=== PATIENT | female | born 2005 | race Caucasian/White ===

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

== ENCOUNTER → 2023-10-25 | Outpatient (CLI) | payer OTHER ==
--- NOTE | 2023-10-25 21:39 | US ---
EXAMINATION TYPE: US OB >= 14 wk fetus DATE OF EXAM: 10/25/2023 COMPARISON: None CLINICAL INDICATION: Female, 18 years old with history of O36.0990 MATERNAL CARE FOR OTH RHESUS ISOIM COLLINS; Rhesus factor TECHNIQUE: Transabdominal (TA) GESTATIONAL AGE / DATING Physician Established: (29 weeks/5 days) EDC: 01/05/2024 Dates by LMP: (29 weeks/5 days) EDC: 01/05/2024 Dates by First Scan: outside imaging Dates by Current Scan: (30 weeks/3 days) EDC: 12/31/2023 Beta HCG (if available): Not available at this time SURVEY IUP: Single PLACENTA: Posterior PREVIA: No Previa NADEEM: 9.1 cm Normal CERVICAL LENGTH (transabdominal: norm > 3.0cm): shadowed by head BIOMETRY PRESENTATION: Vertex LIE: Longitudinal BPD: 7.5 cm 30 weeks / 1 days HC: 28.3 cm 31 weeks / 1 days AC: 27.1 cm 31 weeks / 2 days FL: 5.5 cm 29 weeks / 1 days ESTIMATED WEIGHT IN GRAMS: 1576 grams ESTIMATED WEIGHT IN LBS/OZ: 3 lbs. 8 oz. WEIGHT PERCENTAGE BASED ON ESTABLISHED DATES: 64% HC/AC: 1.1 Normal FL/AC: 20% Normal HEART RATE: 130 bpm RHYTHM: Normal IMPRESSION: 1. Single live intrauterine gestation AGE 30 WEEKS 3 DAYS. 2. ADDITIONAL INFORMATION DESCRIBED ABOVE.
== END | disposition home or self-care (01) ==
LOC: RADUSWWP 15:59
PROVIDERS: ATTEND Obstetrics & Gynecology
DX: O36.0931 Maternal care for other rhesus isoimmunization, third trimester, fetus 1 (principal); Z3A.31 31 weeks gestation of pregnancy
CPT/HCPCS: 76805

== ENCOUNTER 2023-12-29 06:10 | Inpatient (IN) | payer OTHER ==
[2023-12-29] MEDS ORDERED: TRANEXAMIC 1,000 MG/100ML-NACL 1,000 MG in EMPTY BAG 1 BAG IV PRN (06:22)
[2023-12-29] MEDS ORDERED: CARBOPROST TROMETHAMINE 250 MCG/ML 1 ML AMP IM PRN (06:22)
[2023-12-29] MEDS ORDERED: OXYTOCIN 10 UNIT/ML 1 ML VIAL IM PRN (06:22)
[2023-12-29] MEDS ORDERED: METHYLERGONOVINE 0.2 MG/ML 1 ML AMP IM PRN (06:22)
[2023-12-29] MEDS ORDERED: miSOPROStoL 200 MCG TAB PO PRN (06:22)
[2023-12-29] MEDS ORDERED: OXYTOCIN 30 UNITS/500 ML NS 30 UNIT in SALINE 1 500ML.BAG IV SCH ×2 (06:30→09:00)
[2023-12-29 06:51] LABS: Basophils % (A) 0 %; Eosinophils # (A) 0.1 k/uL (0-0.7); Eosinophils % (A) 1 %; HCT 33.4 % (34.0-46.0); HGB 10.8 gm/dL (11.4-16.0); Lymphocytes # (A) 1.6 k/uL (1.0-4.8); Lymphocytes % (A) 22 %; MCH 27.9 pg (25.0-35.0); MCHC 32.5 g/dL (31.0-37.0); MCV 85.8 fL (80.0-100.0); Monocytes # (A) 0.4 k/uL (0-1.0); Monocytes % (A) 5 %; Neutrophils # (A) 4.7 k/uL (1.3-7.7); Neutrophils % (A) 67 %; Platelet Count 157 k/uL (150-450); RBC 3.89 m/uL (3.80-5.40); RDW 15.5 % (11.5-15.5)
[2023-12-29] MEDS: CITRIC ACID-SODIUM CITRATE 15 ML CUP PO ONE (07:16)
--- NOTE | 2023-12-29 08:00 | P.HPOB ---
History of Present Illness H&P Date: 12/29/23 Chief Complaint: repeat low transverse 18 year old presents at 39 weeks 1 day for repeat low transverse . Review of Systems All systems: negative Constitutional: Denies chills, Denies fever Eyes: denies blurred vision, denies pain Ears, nose, mouth and throat: Denies headache, Denies sore throat Cardiovascular: Denies chest pain, Denies shortness of breath Respiratory: Denies cough Gastrointestinal: Denies abdominal pain, Denies diarrhea, Denies nausea, Denies vomiting Genitourinary: Denies dysuria, Denies hematuria Musculoskeletal: Denies myalgias Integumentary: Denies pruritus, Denies rash Neurological: Denies numbness, Denies weakness Psychiatric: Denies anxiety, Denies depression Endocrine: Denies fatigue, Denies weight change Past Medical History Past Medical History: No Reported History History of Any Multi-Drug Resistant Organisms: None Reported Past Surgical History: Section Past Anesthesia/Blood Transfusion Reactions: No Reported Reaction Past Psychological History: No Psychological Hx Reported Smoking Status: Former smoker Past Alcohol Use History: None Reported Past Drug Use History: Marijuana - Past Family History Father Family Medical History: No Reported History Medications and Allergies Allergies Allergy/AdvReac Type Severity Reaction Status Date / Time No Known Allergies Allergy Verified 12/29/23 06:22 Exam Osteopathic Statement: *. No significant issues noted on an osteopathic structural exam other than those noted in the History and Physical/Consult. Intake and Output 12/28/23 12/29/23 12/29/23 22:59 06:59 14:59 Other: Weight 61.235 kg Heart: Regular rate and rhythm Lungs: Clear to auscultation bilaterally Abdomen: Soft, nontender Extremities: Negative Homans sign Results Result Diagrams: 12/29/23 06:40 Abnormal Lab Results - Last 24 Hours (Table) 12/29/23 Range/Units 06:40 Hgb 10.8 L (11.4-16.0) gm/dL Hct 33.4 L (34.0-46.0) % Assessment and Plan (1) Previous section Current Visit: Yes Status: Acute Code(s): Z98.891 - HISTORY OF UTERINE SCAR FROM PREVIOUS SURGERY SNOMED Code(s): 417249660 (2) 39 weeks gestation of Current Visit: Yes Status: Acute Code(s): Z3A.39 - 39 WEEKS GESTATION OF SNOMED Code(s): 14619942 Plan: 1. repeat low transverse
[2023-12-29] MEDS ORDERED: ONDANSETRON 4 MG/2 ML VIAL ONE (08:12)
[2023-12-29] MEDS ORDERED: KETOROLAC 15 MG/ML 1 ML VIAL ONE (08:12)
[2023-12-29] MEDS ORDERED: OXYTOCIN 30 UNITS/500 ML NS BAG IV ONE (08:12)
[2023-12-29] MEDS ORDERED: MORPHINE SULFATE (PF) 0.3 MG/0.3 ML SYR ONE (08:12)
[2023-12-29] MEDS ORDERED: PHENYLEPHRINE-0.9% NACL SYG 1,000 MCG/10 ML SYRINGE ONE (08:12)
[2023-12-29] MEDS ORDERED: diphenhydrAMINE 50 MG/ML 1 ML VIAL IVP PRN (08:50)
[2023-12-29] MEDS ORDERED: diphenhydrAMINE 25 MG CAP PO PRN (08:50)
[2023-12-29] MEDS ORDERED: NALOXONE 0.4 MG/ML 1 ML VIAL IV PRN (08:50)
[2023-12-29] MEDS ORDERED: diphenhydrAMINE 50 MG CAP PO PRN (08:50)
[2023-12-29] MEDS ORDERED: METOCLOPRAMIDE 5 MG/ML 2 ML VIAL IVP PRN (08:50)
[2023-12-29] MEDS ORDERED: LANOLIN CREAM 1 GM TUBE TOPICAL PRN (08:50)
[2023-12-29] MEDS ORDERED: SIMETHICONE 80 MG CHEWABLE PO PRN (08:50)
[2023-12-29] MEDS ORDERED: ZOLPIDEM 5 MG TAB PO PRN (08:50)
--- NOTE | 2023-12-29 08:53 | P.OP ---
Date of Procedure: 12/29/23 Preoperative Diagnosis: 1. at 39 weeks 1 day 2. previous Postoperative Diagnosis: same Procedure(s) Performed: Repeat low transverse Anesthesia: spinal Surgeon: Kalie Mchugh Collaborative Physician #1: Nicolle Angel Estimated Blood Loss (ml): 340 IV fluids (ml): 600 Urine output (ml): 150 Pathology: none sent Condition: stable Disposition: floor Operative Findings: Viable female, Apgars 9, 9, weight 6 lbs. 9 oz. Description of Procedure: Patient was taken to the operating room where spinal anesthesia was found be adequate. She was prepped and draped in normal sterile fashion in dorsal supine position with a leftward tilt. Pfannenstiel skin incision was made the scalpel and carried through to the underlying layer of fascia with the scalpel. Fascia was incised in midline and carried bilaterally with the Novoa scissors. The superior aspect of the fascial incision was grasped with Powderly clamps elevated and the underlying rectus muscles dissected off with the Novoa's. Attention was then turned to inferior aspect of same incision which in a similar fashion was grasped tented up and the underlying rectus muscles dissected off with the Novoa's. The rectus muscles were the midline and the peritoneum was identified tented up and entered sharply with the scalpel. The incision was extended superiorly and inferiorly with good visualization of the bladder. The bladder blade was inserted and the vesicouterine peritoneum was incised the Metzenbaums then carried bilaterally and bladder flap created digitally. A low transverse incision was then made on the uterus with the scalpel. This was carried bilaterally and digital manner. Infant's head delivered atraumatically, nose and mouth bulb suctioned, cord clamped and cut, infant handed off to waiting nurses. Apgars 9,9, weight 6 lbs. 9 oz. Placenta delivered manually, intact with three-vessel cord. The uterus is exteriorized and cleared of all clots and debris. The uterine incision was closed with 0 Vicryl in a running locked fashion. Second layer of the same sutures used in imbricating fashion to obtain excellent hemostasis. Both ovaries and tubes appeared normal. The uterus was placed back into the abdomen. The peritoneum was reapproximated using 2-0 Vicryl in a running fashion. The muscles were reapproximated using 2- 0 Vicryl in interrupted fashion. The fascia was reapproximated using 0 Vicryl in a running fashion. The subcutaneous tissues closed with 3-0 Vicryl running fashion. The skin was closed brandon. Patient tolerated the procedure well, sponge and instrument counts were correct times 2 and she was taken to the recovery room in stable condition.
[2023-12-29] MEDS: LACTATED RINGERS 1,000 ML IV SCH (09:20)
[2023-12-29] MEDS: ACETAMINOPHEN TAB 500 MG TAB PO SCH (11:57)
[2023-12-29] MEDS: IBUPROFEN 600 MG TAB PO SCH (15:00)
[2023-12-29] MEDS: KETOROLAC 15 MG/ML 1 ML VIAL IVP SCH (15:19)
[2023-12-29] MEDS: ONDANSETRON 4 MG/2 ML VIAL IVP PRN (15:19)
[2023-12-29] MEDS: diphenhydrAMINE 50 MG/ML 1 ML VIAL IVP PRN (16:52)
[2023-12-29] MEDS: SENNOSIDES-DOCUSATE SODIUM 1 EACH TAB PO SCH (20:17)
[2023-12-29] MEDS: ACETAMINOPHEN IV (For NPO) 1,000 MG in EMPTY BAG 1 BAG IVPB ONE (20:37)
[2023-12-30 05:29] LABS: Basophils % (A) 0 %; Eosinophils # (A) 0.1 k/uL (0-0.7); Eosinophils % (A) 1 %; HCT 31.7 % (34.0-46.0); HGB 9.9 gm/dL (11.4-16.0); Hypochromasia Slight; Lymphocytes # (A) 1.2 k/uL (1.0-4.8); Lymphocytes % (A) 14 %; MCH 27.7 pg (25.0-35.0); MCHC 31.3 g/dL (31.0-37.0); MCV 88.7 fL (80.0-100.0); Mean Platelet Volume 10.7; Monocytes # (A) 0.5 k/uL (0-1.0); Monocytes % (A) 6 %; Neutrophils # (A) 6.8 k/uL (1.3-7.7); Neutrophils % (A) 76 %; Platelet Count 152 k/uL (150-450); RBC 3.58 m/uL (3.80-5.40); RDW 15.5 % (11.5-15.5)
--- NOTE | 2023-12-30 08:33 | P.PN ---
Progress Note - Text Progress Note Date: 12/30/23 (1147) Anesthesia Postop day 1 Subjective: Status Post section with Duramorph. Patient seen and examined. Doing well without complaint. VAS 6 out of 10rest above. No nausea or vomiting. Mild pruritus tolerable.. Denies fever. Gross lower extremity strength intact. Without apparent anesthetic complications. Objective: Vital signs reviewed Heart: Regular Rate Lungs: Good chest excursion Abdomen: Appears nondistended Assessment: Status post section with Duramorph postop day 1 Plan: 1. Continue current care with your medical management. Anticipated end to the duration of the Duramorph around surgery time today. You may see increased pain needs around this time. 2. This note was dictated using [employer] software. 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
--- NOTE | 2023-12-30 09:32 | P.PNOBGPC ---
Subjective - Subjective Principal diagnosis: Postop day 1, repeat section Interval history: Patient is doing well postoperatively. She is ambulating and voiding without difficulty. States her pain is well-controlled. She is tolerating a regular diet without nausea or vomiting. Lochia is minimal to moderate. Patient reports: Reports appetite normal, Reports voiding normally, Reports pain well controlled, Reports ambulating normally : doing well Objective - Vital Signs Latest vital signs: Vital Signs Temp Pulse Resp BP Pulse Ox 12/30/23 04:00 98.9 F 98 18 107/64 99 12/29/23 23:32 98.1 F 87 16 116/70 97 12/29/23 20:00 98.1 F 88 18 111/68 100 12/29/23 13:00 98.3 F 74 16 120/72 100 12/29/23 11:00 81 16 108/54 12/29/23 10:45 96 18 128/65 99 12/29/23 10:30 71 18 108/69 12/29/23 10:15 69 18 118/58 12/29/23 10:00 80 18 116/56 12/29/23 09:45 77 16 108/55 99 Intake and Output 12/29/23 12/30/23 12/30/23 22:59 06:59 14:59 Intake Total 1950 Output Total 450 550 Balance -450 1400 Intake: IV 1250 Oral 700 Output: Urine 450 550 Straight 250 Uretheral (Cullen) 450 Other: # Voids 1 1 - Exam Extremities: Present: normal, edema Abdomen: Present: normal appearance Incision: Present: normal, dry, intact Uterus: Present: normal, firm - Labs Labs: Abnormal Lab Results - Last 24 Hours (Table) 12/30/23 Range/Units 05:12 RBC 3.58 L (3.80-5.40) m/uL Hgb 9.9 L (11.4-16.0) gm/dL Hct 31.7 L (34.0-46.0) % Assessment and Plan (1) 39 weeks gestation of Current Visit: Yes Status: Acute Code(s): Z3A.39 - 39 WEEKS GESTATION OF SNOMED Code(s): 09713088 (2) Previous section Current Visit: Yes Status: Acute Code(s): Z98.891 - HISTORY OF UTERINE SCAR FROM PREVIOUS SURGERY SNOMED Code(s): 871649479 Plan: Patient is doing well postoperatively. Plan to continue routine postoperative care and anticipate discharge home tomorrow.
[2023-12-31 09:07] VITALS: BP 118/70; PULSE 82; RESP 16; TEMP 98.3
--- NOTE | 2023-12-31 10:05 | P.DS ---
Providers Date of admission: 12/29/23 06:10 Expected date of discharge: 12/31/23 Attending physician: Kalie Mchugh Primary care physician: Javi Raines - Discharge Diagnosis(es) (1) 39 weeks gestation of Current Visit: Yes Status: Acute (2) Previous section Current Visit: Yes Status: Acute (3) Status post section Current Visit: Yes Status: Acute Hospital Course: This is a 18-year-old G2 now P2 that presented to labor and delivery on 12/28 for scheduled repeat section. Patient had been receiving routine care, that has been essentially uncomplicated. For full details in this patient please see the dictated history and physical. Patient was taken to the operating suite where repeat section was performed without difficulty. Patient delivered a viable male infant weight of 6 pounds 9 ounces. For full details on the please see the dictated operative report. Patient's postoperative course has been uneventful. In this postoperative day #2 she is ambulating and voiding without difficulty. She is tolerating a regular diet without nausea or vomiting. States her pain is well-controlled. She denies concerns. She would like discharge home. Patient Condition at Discharge: Good Plan - Discharge Summary Follow up Appointment(s)/Referral(s): Kalie Mchugh DO [Doctor of Osteopathic Medicine] - 1 Week Patient Instructions/Handouts: (GEN), (DC) Activity/Diet/Wound Care/Special Instructions: No intercourse, tampons or douching. No heavy lifting greater than a gallon of milk. No driving for two weeks. Call with any fever, shakes or chills, with any pain not alleviated by over the counter meds, or with any quesions or concerns. Discharge Disposition: HOME SELF-CARE
== END 2023-12-31 10:40 | disposition home or self-care (01) | DRG 788 ==
LOC: 4FBP 06:10
PROVIDERS: ADMIT Obstetrics & Gynecology; ATTEND Obstetrics & Gynecology
PROC: 10D00Z1 Extraction of Products of Conception, Low, Open Approach (ICD-10-PCS; principal; 2023-12-29 08:00)
DX: O34.211 Maternal care for low transverse scar from previous cesarean delivery (principal); L29.9 Pruritus, unspecified; Z37.0 Single live birth; Z3A.39 39 weeks gestation of pregnancy; Z87.891 Personal history of nicotine dependence
CPT/HCPCS: 85025; 86850; 86870; 86880; 86900; 86901; 86902